=== PATIENT | male | born 1975 | race Caucasian/White ===

== ENCOUNTER 2019-01-26 00:33 | Emergency (ER) | payer MEDICAID ==
[~2019-01-26] VITALS: Ht 180.3 cm; Wt 89.7 kg
[2019-01-26 00:39] VITALS: BP 126/76; PULSE 61; RESP 18; Ht 180.3 cm; Wt 89.7 kg
[2019-01-26] MEDS ORDERED: KETOROLAC 60 MG INJ IM STA (01:58)
[2019-01-26] MEDS ORDERED: DIAZEPAM 5 MG TAB PO ONE (02:00)
[2019-01-26] MEDS ORDERED: IBUP800T48 PO (02:01)
[2019-01-26] MEDS ORDERED: HYDR-4011 PO (02:01)
[2019-01-26] MEDS ORDERED: CYCL10TA7 PO (02:01)
--- NOTE | 2019-01-26 02:03 | ERD ---
ER Documentation Chief Complaint Chief Complaint R neck pain radiating to R head/R shoulder X 2 days HPI 43-year-old male is here with right-sided neck pain that radiates up the right side of his head and right upper extremity. Been going on for 2 days. No trauma. Pain began after sleeping on that side of his neck. He is been taking Motrin but is not helping. No numbness or tingling. No fever. No vomiting. ROS All systems reviewed and are negative except as per history of present illness. Medications Home Meds Active Scripts Hydrocodone/Acetaminophen ([place] 5-325 Tablet) 1 Each Tablet, 1 EACH PO Q6, #15 TAB Prov:DANK MUHAMMAD PA-C 01/26/19 Ibuprofen* (Motrin*) 800 Mg Tab, 800 MG PO Q6, #30 TAB Prov:DANK MUHAMMAD PA-C 01/26/19 Cyclobenzaprine Hcl* (Cyclobenzaprine Hcl*) 10 Mg Tablet, 10 MG PO BID, #20 TAB Prov:DANK MUHAMMAD PA-C 01/26/19 Allergies Allergies: Coded Allergies: No Known Allergy (Unverified , 01/26/19) FmHx Family History: No diabetes Physical Exam Vitals Vital Signs Date Temp Pulse Resp B/P (MAP) Pulse Ox O2 O2 Flow FiO2 Time Delivery Rate 01/26/19 97.4 61 18 126/76 97 00:39 (93) Physical Exam INITIAL VITAL SIGNS: Reviewed by me GENERAL: Awake, alert and oriented x 4, well appearing, nontoxic, speaking in full sentences. No acute distress HEAD: Atraumatic NECK: Supple. No masses. Full range of motion. No meningismus. No midline tenderness. EYES: EOMI. PERRL. EAR: No tenderness over the mastoids bilaterally. No exudates in the canals. TMs nonerythematous. RESPIRATORY: Clear to auscultation bilaterally. Symmetric chest wall rise. No wheezing or rales. No accessory muscle use. CV: Regular rate and rhythm. No murmurs, rubs, or gallops. Results 24 hrs Current Medications Medications Dose Sig/Juliet Start Time Status Last (Trade) Ordered Route PRN Stop Time Admin Dose Reason Admin Ketorolac 60 mg ONCE STAT 01/26/19 DC Tromethamine IM 01:58 01/26/19 (Toradol) 01:59 Diazepam 5 mg ONCE ONCE 01/26/19 DC (Valium) PO 02:00 01/26/19 02:01 Procedures/MDM Patient has neck pain radiating up to his head and right upper extremity. Likely cervical radiculopathy. No trauma. Toradol and Valium given here prescription for ibuprofen Flexeril and a small amount and Frankewing given. Patient counseled regarding my diagnostic impression and care plan. Prior to discharge all questions answered. Pt agrees with treatment plan and understands strict return precautions. Pt is instructed to follow up with primary care provider within 24-48 hours. Precautionary instructions provided including instructions to return to the ER if not improving or for any worsening or changing symptoms or concerns. Departure Diagnosis: Primary Impression: Cervical radiculopathy Condition: Stable Patient Instructions: Neck Problems: Relieving Your Symptoms, Neck Pain, No Trauma Additional Instructions: Llame al doctor MAANA y ben rachael [place] PARA DENTRO DE 1-2 MORALES.Dgale a la secretaria que nosotros le instruimos hacer esta aurora.Avise o llame si ruggiero condicin se empeora antes de la aurora. Regresa aqui si peor o no mejor. DANK MUHAMMAD PA-C January 26, 2019 02:03
== END 2019-01-26 02:28 | disposition home or self-care (01) ==
LOC: FTE 00:33
DX: M54.12 Radiculopathy, cervical region (principal)
CPT/HCPCS: 96372; J1885; Z7502; Z7610

== ENCOUNTER 2019-01-28 10:12 | Emergency (ER) | payer MEDICAID ==
[~2019-01-28] VITALS: Wt 89.0 kg
[~2019-01-28 10:12] MED LIST: CYCL10TA7 PO; HYDR-4011 PO; IBUP800T48 PO
[2019-01-28 10:19] VITALS: BP 138/72; PULSE 72; RESP 18
[2019-01-28] MEDS ORDERED: PRED20TA PO (10:51)
[2019-01-28] MEDS ORDERED: HYDR-4011 PO (10:51)
[2019-01-28] MEDS ORDERED: VALA500T PO (10:51)
--- NOTE | 2019-01-28 10:57 | ERD ---
ER Documentation Chief Complaint Chief Complaint RIGHT SIDE NECK RASH/SHINGELS HPI Is a 43-year-old male who presents with pain in the right side of his neck. Saw him 2 days ago for this and he has not gotten better and now has developed a rash there. Rash is burning in nature. No fever. No trauma. No lip or tongue swelling or difficulty breathing. ROS All systems reviewed and are negative except as per history of present illness. Medications Home Meds Active Scripts valAcyclovir Hcl* (valACYclovir Hcl*) 500 Mg Tablet, 500 MG PO BID for 7 Days, TAB Prov:DANK MUHAMMAD PA-C 01/28/19 Prednisone* (Prednisone*) 20 Mg Tab, 60 MG PO DAILY for 5 Days, TAB Prov:DANK MUHAMMAD PA-C 01/28/19 Hydrocodone/Acetaminophen ([place] 5-325 Tablet) 1 Each Tablet, 1 EACH PO Q6, #15 TAB Prov:DANK MUHAMMAD PA-C 01/28/19 Hydrocodone/Acetaminophen ([place] 5-325 Tablet) 1 Each Tablet, 1 EACH PO Q6, #15 TAB Prov:DANK MUHAMMAD PA-C 01/26/19 Ibuprofen* (Motrin*) 800 Mg Tab, 800 MG PO Q6, #30 TAB Prov:DANK MUHAMMAD PA-C 01/26/19 Cyclobenzaprine Hcl* (Cyclobenzaprine Hcl*) 10 Mg Tablet, 10 MG PO BID, #20 TAB Prov:DANK MUHAMMAD PA-C 01/26/19 Allergies Allergies: Coded Allergies: No Known Allergy (Unverified , 01/26/19) PMhx/Soc Medical and Surgical Hx: pt denies Medical Hx, pt denies Surgical Hx Hx Alcohol Use: No Hx Substance Use: Yes (hern[place]) Hx Tobacco Use: No Smoking Status: Never smoker FmHx Family History: No diabetes Physical Exam Vitals Vital Signs Date Temp Pulse Resp B/P (MAP) Pulse Ox O2 O2 Flow FiO2 Time Delivery Rate 01/28/19 98.1 72 18 138/72 99 10:19 (94) Physical Exam Const: No acute distress Head: Atraumatic Eyes: Normal Conjunctiva ENT: Normal External Ears, Nose and Mouth. Neck: Full range of motion. No meningismus. Resp: Clear to auscultation bilaterally Cardio: Regular rate and rhythm, no murmurs Abd: Soft, non tender, non distended. Normal bowel sounds Skin: Vesicular rash to the right side of the neck and dermatomal distribution Procedures/MDM Patient has shingles. He is discharged with antivirals, prednisone, and pain medication. Patient counseled regarding my diagnostic impression and care plan. Prior to discharge all questions answered. Pt agrees with treatment plan and understands strict return precautions. Pt is instructed to follow up with primary care provider within 24-48 hours. Precautionary instructions provided including instructions to return to the ER if not improving or for any worsening or changing symptoms or concerns. Departure Diagnosis: Primary Impression: Shingles Condition: Stable Patient Instructions: Shingles (Herpes Zoster) Additional Instructions: Call your primary care doctor TOMORROW for an appointment during the next 1-2 days.See the doctor sooner or return here if your condition worsens before your appointment time. DANK MUHAMMAD PA-C January 28, 2019 10:57
== END 2019-01-28 11:37 | disposition home or self-care (01) ==
LOC: FTE 10:12
DX: B02.9 Zoster without complications (principal)
CPT/HCPCS: 99283